=== PATIENT | female | born 1960 | race Caucasian/White ===

== ENCOUNTER 2020-08-10 14:00 | Outpatient (CLI) | payer SELFPAY ==
[~2020-08-10] VITALS: Ht 170.2 cm; Wt 86.0 kg
[2020-08-10 14:25] VITALS: BP 123/45; PULSE 75; TEMP 99.2
[2020-08-10] MEDS ORDERED: TYLENOL 500MG500 MG PO (14:33)
[2020-08-10] MEDS ORDERED: LEVEMIR100 U/ML SQ (14:34)
[2020-08-10] MEDS ORDERED: GLUCOPHAGE XR500 M1 PO (14:35)
[2020-08-10] MEDS ORDERED: LOTENSIN40 MG PO (14:35)
[2020-08-10] MEDS ORDERED: TOPROL XL 25MG25 MG PO (14:36)
[2020-08-10] MEDS ORDERED: NORVASC 5MG5 MG/TAB PO (14:36)
[2020-08-10] MEDS ORDERED: JANUVIA 100MG100 MG PO (14:36)
--- NOTE | 2020-08-10 16:45 | NUR ---
Vitals obtained every 30 minutes during infusion and post infuion.pt monitored for 1 hour post and escorted out via ambulatory by staff.
== END 2020-08-10 16:45 | disposition home or self-care (01) ==
LOC: EUO 14:00
DX: E11.9 Type 2 diabetes mellitus without complications (principal); J45.909 Unspecified asthma, uncomplicated; U07.1 COVID-19
CPT/HCPCS: J7050

== ENCOUNTER → 2021-07-12 | Outpatient (CLI) | payer OTHER ==
[~2021-07-12] MED LIST: GLUCOPHAGE XR500 M1 PO; JANUVIA 100MG100 MG PO; LEVEMIR100 U/ML SQ; LOTENSIN40 MG PO; NORVASC 5MG5 MG/TAB PO; TOPROL XL 25MG25 MG PO; TYLENOL 500MG500 MG PO
== END ==
LOC: COL.RAD 07:09
DX: K75.81 Nonalcoholic steatohepatitis (NASH) (principal); Z90.49 Acquired absence of other specified parts of digestive tract; K76.0 Fatty (change of) liver, not elsewhere classified; K44.9 Diaphragmatic hernia without obstruction or gangrene
CPT/HCPCS: A9585

== ENCOUNTER → 2022-10-05 | Outpatient (CLI) | payer OTHER | LOC: MC.RAD 10:32 | DX: Z12.31 Encounter for screening mammogram for malignant neoplasm of breast (principal) ==

== ENCOUNTER 2023-03-22 13:48 | Outpatient (CLI) | payer OTHER ==
[~2023-03-22] VITALS: Ht 170.2 cm; Wt 91.2 kg
[2023-03-22] MEDS ORDERED: LIPITOR 40MG TA40 MG PO (13:56)
[2023-03-22] MEDS ORDERED: PROTONIX20 MG PO (13:56)
[2023-03-22] MEDS ORDERED: WELLBUTRIN XL300 M1 PO (13:57)
[2023-03-22] MEDS ORDERED: OZEMPIC2 MG/0.75 SQ (13:57)
[2023-03-22 14:02] VITALS: BP 119/74; PULSE 78; TEMP 98.2
--- NOTE | 2023-03-22 14:39 | NUR ---
Pt tolerated prolia without issue. She exits dept with steady gait.
== END 2023-03-22 14:40 | disposition home or self-care (01) ==
LOC: EUO 13:48
DX: M81.0 Age-related osteoporosis without current pathological fracture (principal)
CPT/HCPCS: J0897